=== PATIENT | female | born 1985 | race Caucasian/White ===

== ENCOUNTER 2018-02-16 05:20 | Emergency (ER) | payer BC ==
[~2018-02-16] VITALS: Ht 177.8 cm; Wt 107.6 kg
[2018-02-16 06:09] LABS: HEMATOCRIT 43.4 % (36.0-46.0); HEMOGLOBIN 15.1 G/DL (11.9-15.5); MCH 30.9 PG (29.0-34.0); MCHC 34.8 G/DL (30.0-36.0); MCV 88.9 FL (83-99); PLATELET COUNT 332 K/uL (156-360); RBC DIS.WIDTH-CV 12.6 % (11.8-14.6); RBC DIS.WIDTH-SD 41.2 % (39-53); RED BLOOD COUNT 4.88 M/uL (3.80-5.20); WHITE BLOOD COUNT 5.6 K/uL (4.1-10.2)
[2018-02-16 06:19] LABS: CHLORIDE 108 mEq/L (99-109); POTASSIUM 3.9 mEq/L (3.7-5.4); SODIUM 138 mEq/L (136-147)
[2018-02-16 06:21] LABS: GLUCOSE 105 mg/dL (70-99)
[2018-02-16 06:25] LABS: CREATININE 0.9 mg/dL (0.6-1.3); UREA NITROGEN (BUN) 11 mg/dL (9-23)
[2018-02-16 06:29] LABS: TROP-I INTERPRETATION NEGATIVE; TROPONIN-I < 0.01 ng/mL (0.0-0.30)
[2018-02-16 06:33] LABS: D-DIMER ELISA < 150.00 ng/mLDDU (<230)
[2018-02-16 06:39] LABS: GFR ESTIMATE (CALCULATED) > 59 mL/min/
[2018-02-16 08:46] LABS: TROP-I INTERPRETATION NEGATIVE; TROPONIN-I < 0.01 ng/mL (0.0-0.30)
[2018-02-16] MEDS ORDERED: XANAX0.5 MG PO (09:16)
[2018-02-16 09:34] VITALS: BP 124/82
== END 2018-02-16 09:46 | disposition home or self-care (01) ==
LOC: EME 05:20
PROVIDERS: Emergency Medicine
DX: R07.89 Other chest pain (principal); F41.9 Anxiety disorder, unspecified; Z82.49 Family history of ischemic heart disease and other diseases of the circulatory system
CPT/HCPCS: 71046; 80048; 84484; 85027; 85379; 93005; 99281; 99285; J1885; J2405